=== PATIENT | male | born 1980 | race Caucasian/White ===

== ENCOUNTER 2022-04-06 19:18 | Emergency (ER) | payer MEDICAID ==
[~2022-04-06] VITALS: Ht 172.7 cm; Wt 64.0 kg
[2022-04-06 19:41] VITALS: BP 147/100
[2022-04-06] MEDS ORDERED: LORAZEPAM 2MG/ML CPJ IM PRN (21:45)
[2022-04-06 23:13] LABS: *AMPHETAMINES SCREEN URINE PRESUMTIVE POSITIVE (NEGATIVE); *BARBITURATES SCREEN URINE NEGATIVE (NEGATIVE); *BENZODIAZEPINES SCREEN URINE NEGATIVE (NEGATIVE); *COCAINE SCREEN URINE NEGATIVE (NEGATIVE); CANNABINOID URINE SCREEN NEGATIVE (NEGATIVE); METHADONE URINE SCREEN NEGATIVE (NEGATIVE); OPIATES URINE SCREEN NEGATIVE (NEGATIVE); PHENCYCLIDINE URINE SCREEN NEGATIVE (NEGATIVE)
== END 2022-04-06 23:35 | disposition home or self-care (01) ==
LOC: ER 19:18
DX: F41.9 Anxiety disorder, unspecified (principal); T43.651A Poisoning by methamphetamines accidental (unintentional), initial encounter; Z98.890 Other specified postprocedural states; Y92.9 Unspecified place or not applicable
CPT/HCPCS: 80305; 96372; 99283; J2060